=== PATIENT | female | born 1965 | race American Indian/Alaskan Native ===

== ENCOUNTER 2018-02-17 10:33 | Emergency (ER) | payer OTHER ==
[2018-02-17 11:30] LABS: Basophils % (Auto) 0.6 % (0.0-1.8); Eosinophils # (Auto) 0.1 K/mm3 (0.0-0.4); Eosinophils % (Auto) 3.4 % (0.0-4.3); Hematocrit 40.2 % (30.3-42.9); Hemoglobin 13.2 gm/dl (10.1-14.3); Lymphocytes # (Auto) 1.5 K/mm3 (1.2-5.4); Lymphocytes % (Auto) 34.3 % (13.4-35.0); Mean Corpuscular HGB Conc 33 % (30-34); Mean Corpuscular Hemoglobin 29 pg (28-32); Mean Corpuscular Volume 88 fl (79-97); Monocytes # (Auto) 0.3 K/mm3 (0.0-0.8); Monocytes % (Auto) 6.9 % (0.0-7.3); Platelet Count 195 K/mm3 (140-440); Red Blood Count 4.57 M/mm3 (3.65-5.03); Red Cell Distribution Width 13.7 % (13.2-15.2)
[2018-02-17 11:46] LABS: BUN/Creatinine Ratio 11; Blood Urea Nitrogen 8 mg/dL (7-17); Calcium 8.4 mg/dL (8.4-10.2); Hemolysis Index 12
[2018-02-17] MEDS ORDERED: TORADOL IM ONE (16:48)
[2018-02-17] MEDS ORDERED: TESSALON PERLES PO ONE (16:50)
[2018-02-17 17:04] VITALS: BP 152/96
--- NOTE | 2018-02-17 18:03 | Emergency Department Report ---
HPI - General Chief Complaint: Chest Pain Time Seen by Provider: 02/17/18 15:08 - HPI HPI: The patient's 52-year-old female presents for evaluation of chest pain. The patient was one week of right-sided chest pain, sharp in quality, exacerbated with coughing, moderate severity, relieved at rest. She also reports a nonproductive cough same duration. The patient denies fever, neck pain, parasthesias, dyspnea, hemoptysis, palpitations, dizziness, syncope, unilateral leg swelling, calf muscle pain. Patient also denies cocaine or other stimulant use, history of DVT or PE, recent immobilization, or history of cancer. ED Past Medical Hx - Past Medical History Previous Medical History?: No - Surgical History Past Surgical History?: Yes Additional Surgical History: x 5. gastric bypass. hysterectomy - Social History Smoking Status: Never Smoker Substance Use Type: None - Medications Home Medications: Home Medications Medication Instructions Recorded Confirmed Last Taken Type Benzonatate [Tessalon Perles] 100 mg PO Q8HR #20 capsule 02/17/18 Unknown Rx Ibuprofen [Motrin] 800 mg PO Q8HR PRN #10 tablet 02/17/18 Unknown Rx traMADol [Ultram 50 MG tab] 50 mg PO Q6HR PRN #15 tablet 02/17/18 Unknown Rx ED Review of Systems ROS: Stated complaint: CHEST PAIN Other details as noted in HPI Constitutional: denies: fever ENT: denies: throat or neck pain Respiratory: denies: cough, shortness of breath Cardiovascular: reports: chest pain Endocrine: denies unexplained weight loss or gain Gastrointestinal: denies: abdominal pain, nausea Genitourinary: denies: dysuria Musculoskeletal: denies: leg swelling Skin: denies: rash Neurological: denies: headache Hematological/Lymphatic: denies: easy bleeding or easy bruising Psych: denies sadness or hopelessness Physical Exam - Physical Exam Vital Signs: Vital Signs 02/17/18 02/17/18 02/17/18 10:42 15:18 15:45 Temperature 97.9 F 98.8 F Pulse Rate 79 83 54 L Respiratory 16 16 14 Rate Blood Pressure 133/86 Blood Pressure 121/65 133/101 [Right] O2 Sat by Pulse 98 97 100 Oximetry 02/17/18 02/17/18 02/17/18 16:00 16:15 16:31 Temperature Pulse Rate 50 L 79 59 L Respiratory 14 17 13 Rate Blood Pressure 128/82 128/82 128/82 Blood Pressure [Right] O2 Sat by Pulse 100 94 72 L Oximetry 02/17/18 02/17/18 16:45 17:01 Temperature Pulse Rate 54 L Respiratory 13 Rate Blood Pressure 128/82 152/96 Blood Pressure [Right] O2 Sat by Pulse 78 L 98 Oximetry Physical Exam: General: well-nourished, well-developed, no acute distress Head: Normocephalic, atraumatic Eyes: normal sclera ENT: Mucous membranes are pink and moist Neck: trachea midline, neck supple, No neck stiffness, no cervical adenopathy Respiratory: Breath sounds equal bilaterally, no wheezing, rales, or rhonchi Cardio: S1 and S2 present, no murmurs, rubs, gallops, capillary refill is brisk Abdomen: Normoactive bowel sounds, soft abdomen, no rigidity, no guarding or rebound tenderness Chest: chest pain reproduced with abduction and internal rotation of the right arm at the shoulder joint Musc: No pitting edema Skin: No rash Neuro: no facial drooping, normal speech Psych: Normal affect ED Course Vital Signs 02/17/18 02/17/18 02/17/18 10:42 15:18 15:45 Temperature 97.9 F 98.8 F Pulse Rate 79 83 54 L Respiratory 16 16 14 Rate Blood Pressure 133/86 Blood Pressure 121/65 133/101 [Right] O2 Sat by Pulse 98 97 100 Oximetry 02/17/18 02/17/18 02/17/18 16:00 16:15 16:31 Temperature Pulse Rate 50 L 79 59 L Respiratory 14 17 13 Rate Blood Pressure 128/82 128/82 128/82 Blood Pressure [Right] O2 Sat by Pulse 100 94 72 L Oximetry 02/17/18 02/17/18 16:45 17:01 Temperature Pulse Rate 54 L Respiratory 13 Rate Blood Pressure 128/82 152/96 Blood Pressure [Right] O2 Sat by Pulse 78 L 98 Oximetry ED Medical Decision Making - Lab Data Result diagrams: 02/17/18 11:06 02/17/18 11:06 - Medical Decision Making The patient was seen and examined by myself. The patient is placed on a threat monitoring analyst and continuous pulse ox. On initial evaluation, the patient was found to be in no distress. EKG was negative for findings suggestive of acute cardiac infarct. Labs and imaging are obtained. The patient is given IM dose of Toradol for pain. Chest x-ray is negative for pneumothorax, focal consolidation, pulmonary vascular congestion, pleural effusion, or other obvious acute cardiopulmonary disease process. Lab results were non-concerning including levels of troponin, WBC, hemoglobin, hematocrit, electrolytes, renal function. The patient was reevaluated and reported that their symptoms were markedly improved. As the patient has a FATEMEH risk score less than 2, and a well 's score less than 2, the patient is at low risk of ACS or pulmonary emboli etiology of their symptoms. The patient is stable for discharge with outpatient follow-up. The patient is given follow-up and return instructions. The patient expressed understanding and agreed with the plan. The patient is discharged in stable condition. Critical care attestation.: If time is entered above; I have spent that time in minutes in the direct care of this critically ill patient, excluding procedure time. ED Disposition Clinical Impression: Acute chest pain, Acute upper respiratory infection Disposition: DC- TO HOME OR SELFCARE Is pt being admited?: No Does the pt Need Aspirin: No Condition: Stable Instructions: Chest Pain (ED), Costochondritis (ED) Referrals: PRIMARY CARE, [Primary Care Provider] - 3-5 Days Time of Disposition: 17:56
--- NOTE | 2018-02-17 19:10 | XRay Report ---
FINAL REPORT EXAM: XR CHEST 1V AP HISTORY: chest pain TECHNIQUE: Frontal portable view of the chest Comparison: None FINDINGS: There is no evidence of infiltrate, pneumothorax or pleural fluid collection. The cardiomediastinal silhouette is normal in appearance. The bony structures are unremarkable. Visualization detail of the thoracic spine is limited. IMPRESSION: 1. No evidence of an acute pulmonary process.
== END 2018-02-17 18:26 | disposition home or self-care (01) ==
LOC: ED 10:33
DX: J06.9 Acute upper respiratory infection, unspecified (principal); R07.89 Other chest pain; Z90.710 Acquired absence of both cervix and uterus; Z79.899 Other long term (current) drug therapy
CPT/HCPCS: 36415; 71045; 80048; 84484; 85025; 85379; 93005; 93010; 96372; 99284; J1885

== ENCOUNTER 2020-10-02 07:14 | Outpatient (CLI) | payer OTHER ==
--- NOTE | 2020-10-02 08:39 | Mammography Report ---
DIGITAL SCREENING MAMMOGRAM, 10/02/2020 CLINICAL INFORMATION / INDICATION: Routine screening TECHNIQUE: Digital bilateral 2D mammography was obtained in the craniocaudal and mediolateral obliqu e projections. COMPARISON: None, baseline FINDINGS: Breast Density: There are scattered areas of fibroglandular density. No dominant mass, suspicious calcifications, or architectural distortion in the left breast. In the far upper posterior left breast at 12:00, approximately 15 cm from the nipple, a 6 mm indeterm inate irregular density is seen with a small central calcification, not clearly a lymph node. IMPRESSION: Indeterminate density on the right Follow up recommendation: Right breast ultrasound and additional mammographic views if needed BI-RADS Category 0: Incomplete. Needs additional imaging evaluation and/or prior mammograms for gabbi khan. A "normal" or negative report should not discourage follow up or biopsy of a clinically significant f inding. A written summary of these findings will be mailed to the patient. The patient will be entered into a mammography reporting system which will generate a reminder letter for the patient's next appointmen t at the appropriate interval. The [employer] recommends yearly mammograms starting at age 40 and continuing as l sami as a woman is in good health. Breast MRI is recommended for women with an approximate 20-25% or greater lifetime risk of breast cancer, including women with a strong family history of breast or ova perez cancer or who have been treated for Hodgkin's disease. Signer Name: Willian Gamez MD Signed: 10/02/2020 8:34 AM Workstation Name: [id number]
== END 2020-10-02 07:15 | disposition home or self-care (01) ==
LOC: MAMMO 07:14
PROVIDERS: ATTEND Obstetrics & Gynecology
DX: Z12.31 Encounter for screening mammogram for malignant neoplasm of breast (principal); N64.89 Other specified disorders of breast
CPT/HCPCS: 77067

== ENCOUNTER 2020-10-30 08:26 | Outpatient (CLI) | payer OTHER ==
--- NOTE | 2020-10-30 09:31 | Ultrasound Report ---
RIGHT DIGITAL DIAGNOSTIC MAMMOGRAM WITH CAD , 10/30/2020 RIGHT LIMITED BREAST ULTRASOUND CLINICAL INFORMATION / INDICATION: Abnormal screening mammogram R92.8 TECHNIQUE: Digital right mammographic imaging was performed. Spot compression views were obtained. [facility]. This examination was interpreted with the benefit of Computer-Aided D etection (CAD) analysis. COMPARISON: Recent screening mammogram 10/02/2020 FINDINGS: Breast Density: There are scattered areas of fibroglandular density. MAMMOGRAPHIC FINDINGS: Spot compression views of the superior density in the right breast show persis tence of the density although less prominent in appearance. There remains a central calcification.. ULTRASOUND FINDINGS: Targeted ultrasound evaluation was performed of the area of interest. Sonograp hic evaluation of the right breast at 12-1:00, 15 cm from nipple, demonstrates a small oval slightly irregular hypoechoic mass containing a central calcification. There is a hyperechoic rim noted. The m ass measures 4 x 2 mm and does correlate with abnormality noted on recent screening mammogram. IMPRESSION: 4 mm hypoechoic mass containing calcification is noted in the right breast at 12-1:00. Ov erall appearance is nonspecific but could potentially represent a benign fibroadenoma. As we do not h ave any prior mammograms for comparison, an ultrasound-guided biopsy is recommended for definitive ev aluation. Follow up recommendation: Biopsy BI-RADS Category 4: Suspicious for Malignancy. A "normal" or negative report should not discourage follow up or biopsy of a clinically significant f inding. A written summary of these findings will be mailed to the patient. The patient will be entered into a mammography reporting system which will generate a reminder letter for the patient's next appointmen t at the appropriate interval. According to the [employer], yearly mammograms are recommended starting at age 40 and continuing as long as a woman is in good health. Breast MRI is recommended for women with an joce roximately 20-25% or greater lifetime risk of breast cancer, including women with a strong family his tory of breast or ovarian cancer and women who have been treated for Hodgkin's disease. Signer Name: Jing Alexandre MD Signed: 10/30/2020 9:27 AM Workstation Name: [id number]
== END 2020-10-30 08:27 | disposition home or self-care (01) ==
LOC: MAMMO 08:26
PROVIDERS: ATTEND Obstetrics & Gynecology
DX: N63.12 Unspecified lump in the right breast, upper inner quadrant (principal); R92.1 Mammographic calcification found on diagnostic imaging of breast

== ENCOUNTER 2021-05-28 13:49 | Emergency (ER) | payer OTHER ==
[2021-05-28] MEDS ORDERED: TETANUS,DIPH,PERTUSS(ACELL) VACCINE 0.5 ML SYRINGE IM ONE (15:40)
--- NOTE | 2021-05-28 15:40 | Emergency Department Report ---
[place] [facility] Chief Complaint: Laceration/Recheck/Suture Stated Complaint: CUT KNUCKLE Time Seen by Provider: 05/28/21 14:41 Location: Upper Extremity (Left thumb) Tetanus Status: Not up to Date Laceration Symptoms: Yes Pain, No Foreign Body Sensation, No Numbness, No Weakness Other History: 56-year-old -[place] Citizen female presents to the emergency room stating she cut her left thumb with a telephone coin box collector just prior to arrival. Patient states that she was having trouble controlling the bleeding. She reports that she has not up-to-date on her vaccines. ED Review of Systems ROS: Stated complaint: CUT KNUCKLE Other details as noted in HPI ED Past Medical Hx - Surgical History Additional Surgical History: x 5. gastric bypass. hysterectomy - Social History Smoking Status: Never Smoker Substance Use Type: None - Medications Home Medications: Home Medications Medication Instructions Recorded Confirmed Last Taken Type Benzonatate [Tessalon Perles] 100 mg PO Q8HR #20 capsule 02/17/18 05/28/21 Unknown Rx Ibuprofen [Motrin] 800 mg PO Q8HR PRN #10 tablet 02/17/18 05/28/21 Unknown Rx traMADoL [Ultram 50 MG tab] 50 mg PO Q6HR PRN #15 tablet 02/17/18 05/28/21 Unknown Rx Laceration Physical Exam - Exam General: Vital signs noted. No distress. Alert and acting appropriately. Wound Length (cm): 1 Laceration Location: Upper Extremity (Left thumb) Laceration Exam: Yes Normal Distal CMS, No Foreign Body, No Exposed Tendon, Vessel, or Nerve, No Tendon Injury ED Course Vital Signs 05/28/21 05/28/21 14:15 14:19 Temperature 98.1 F 97.7 F Pulse Rate 71 83 Respiratory 15 12 Rate Blood Pressure 121/74 Blood Pressure 122/77 [Right] O2 Sat by Pulse 99 100 Oximetry ED Medical Decision Making - Medical Decision Making 56-year-old -[place] Citizen female presents to the emergency room stating she cut her left thumb with a telephone coin box collector just prior to arrival. Patient states that she was having trouble controlling the bleeding. She reports that she has not up-to-date on her vaccines. Laceration is very superficial will need Dermabond Steri-Strips and a Band-Aid. Laceration was soaked in Betadine water. Critical care attestation.: If time is entered above; I have spent that time in minutes in the direct care of this critically ill patient, excluding procedure time. ED Disposition Clinical Impression: Thumb laceration Disposition: 01 HOME / SELF CARE / HOMELESS Is pt being admited?: No Does the pt Need Aspirin: No Condition: Stable Instructions: Laceration Care, Adult, [id number] Additional Instructions: Please keep wound clean and dry. Change Band-Aid often. Tylenol or ibuprofen as needed for pain. Referrals: PRIMARY CARE, [Primary Care Provider] - 3-5 Days Forms: Work/School Release Form(ED) Time of Disposition: 16:14
[2021-05-28 16:22] VITALS: BP 111/68
== END 2021-05-28 16:21 | disposition home or self-care (01) ==
LOC: ED 13:49
DX: S61.012A Laceration without foreign body of left thumb without damage to nail, initial encounter (principal); Z90.710 Acquired absence of both cervix and uterus; Z98.890 Other specified postprocedural states; Z98.51 Tubal ligation status; W26.8XXA Contact with other sharp object(s), not elsewhere classified, initial encounter; Y93.89 Activity, other specified; Y92.89 Other specified places as the place of occurrence of the external cause; Y99.8 Other external cause status
CPT/HCPCS: 90471; 90715; 99282